=== PATIENT | male | born 1965 | race Two or more races ===

== ENCOUNTER 2024-08-17 07:45 | Emergency (ER) | payer OTHER ==
[~2024-08-17] VITALS: Ht 167.6 cm; Wt 108.9 kg
[2024-08-17] MEDS ORDERED: TOPROL XL50 M1 (07:54)
[2024-08-17] MEDS ORDERED: LOSARTAN POTASS25 MG (07:54)
== END 2024-08-17 09:36 | disposition home or self-care (01) ==
LOC: ER 07:47
DX: H60.01 Abscess of right external ear (principal); I10 Essential (primary) hypertension

== ENCOUNTER → 2024-12-11 | Emergency (ER) | payer OTHER ==
[~2024-12-11] VITALS: Ht 167.6 cm; Wt 104.3 kg
[~2024-12-11] MED LIST: KETOROLAC TROMETHAMINE 30 MG VIAL IM STA; LOSARTAN POTASS25 MG; ORPHENADRINE CITRATE 30 MG/ML AMPUL IM STA; TOPROL XL50 M1
== END | disposition home or self-care (01) ==
LOC: ER 20:24
DX: M43.6 Torticollis (principal)